=== PATIENT | female | born 1990 | race Native Hawaiian/Other Pacific Islander ===

== ENCOUNTER 2023-08-28 09:28 | Inpatient (IN) | payer OTHER ==
[~2023-08-28] VITALS: Ht 157.5 cm; Wt 84.6 kg
[2023-08-28] VITALS (578 sets, daily range): BP systolic 77–199; BP diastolic 95–127; PULSE 63–97; TEMP 98.3; O2SAT 93–100
[~2023-08-28 09:28] MED LIST: APRESOLINE 25MG25 MG PO; ASPIRIN 81M81 MG/TA2 PO; CATAPRES 0.1MG0.1 MG PO; CEFTIN 250250 MG/TAB PO; COREG 25MG25 MG/TAB PO; NORVASC 10MG10 MG PO; PRINIVIL5 MG PO
[2023-08-28 10:16] LABS: BASO # 0.1 K/mm3 (0.0-0.2); BASO % 0.7 % (0.0-2.0); EOS # 0.8 K/mm3 (0.0-0.7); EOS % 6.6 % (0.0-4.0); GRAN # 7.8 K/mm3 (1.4-6.5); GRAN % 68.2 % (42.2-75.2); HEMATOCRIT 42.4 % (37.0-47.0); HEMOGLOBIN 14.6 g/dl (12.5-16.0); LYMPH % 17.7 % (20.0-51.0); MEAN CELL VOLUME 92 fl (80.0-100.0); MEAN CORPUSCULAR HEMOGLOBIN 32 pg (27-31); MEAN CORPUSCULAR HGB CONC 34 g/dl (33.0-37.0); MEAN PLATELET VOLUME 9.3 fl (7.4-10.4); MONO # 0.7 K/mm3 (0.1-0.6); MONO % 6.5 % (1.7-9.3); PLATELET COUNT 341 K/mm3 (130-400); RED BLOOD COUNT 4.63 M/mm3 (4.10-5.30); REDCELL DISTRIBUTION WIDTH-CV 12.3 % (11.5-14.5)
[2023-08-28 10:29] LABS: INR 0.9 (0.8-3.0); PROTHROMBIN TIME 10.1 SECONDS (9.7-12.8)
[2023-08-28 10:31] LABS: BILIRUBIN,TOTAL 0.4 mg/dL (0.2-1.2); CALCIUM 9.3 mg/dL (8.4-10.2); CREATININE, serum 2.67 mg/dL (0.57-1.11); PARTIAL THROMBOPLASTIN TIME 34.5 SECONDS (26.0-37.0); POTASSIUM 3.1 mmol/L (3.5-4.5); TOTAL PROTEIN 8.6 gm/dL (6.2-8.1)
[2023-08-28 10:37] LABS: TROPONIN-I 0.03 ng/mL (0.00-0.033)
[2023-08-28 11:56] LABS: COLLECTION METHOD CLEAN CATCH
[2023-08-28 12:12] LABS: TRICYCLIC ANTIDEPRESS URINE NEGATIVE
[2023-08-28 12:30] LABS: PH 6.5 (5.0-8.5); URINE APPEARANCE Clear (CLEAR/HAZY); URINE BLOOD 1+ (NEGATIVE); URINE COLOR Straw (YELLOW); URINE GLUCOSE Negative (NEGATIVE); URINE KETONE Negative (NEGATIVE); URINE NITRATE Negative (NEGATIVE); URINE PROTEIN(semi-quant) 3+ (NEGATIVE); URINE RBC 0-2 /hpf (0-2); URINE UROBILINOGEN 0.2 E.U/dL (0.2-1.0)
[2023-08-28 12:31] LABS: SQUAMOUS EPITHELIAL 0-2 /hpf (0-10); URINE BACTERIA None Seen /hpf (NONE SEEN)
--- NOTE | 2023-08-28 13:00 | NUR ---
Report received from VICKY Duron; patient brought over and ambulated over to the bed. Cardene is running through her peripheral line; no other lines or tubes are in place at this time. Patient alert and oriented; no complaints of pain at this time. Patient's vital signs are within normal limits, with the exception of blood pressure which has been elevated. Will continue to titrate Cardene per orders in eMAR.
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
--- NOTE | 2023-08-28 17:44 | NUR ---
REPORT CALLED TO [facility]. PT TRANSPORTED TO ROOM 312 VIA BED ACCOMPANIED BY STAFF. BELONGINGS SENT WITH THE PATIENT. PT WAS STABLE UPON TRANSFER. RESPIRATIONS EVEN AND UNLABORED. NO SIGN OF DISTRESS AT THIS TIME.
--- NOTE | 2023-08-28 17:55 | NUR ---
DR PAULSON NOTIFIED THAT PT HAS A HEADACH. ORDERS FOR TYLENOL AND TO CONTINUE NICARDIPINE DRIP RECEIVED. PT IS HYPERTENSIVE. ORAL MEDICATIONS GIVEN. WILL CONTINUE TO MONITOR. PARTNER AT THE BEDSIDE. PT INSTRUCTED TO CALL THE NURSE FOR ASSISTANCE OR ANY NEEDS.
--- NOTE | 2023-08-28 18:33 | NUR ---
STABLE ON ROUNDS. PT WAS INSTRUCTED TO CONTACT VA TO ESTABLISH CARE AND GET MEDICATIONS. PARTNER REMAINS AT BEDSIDE. PT DENIES PAIN AT THIS TIME. CARDENE DRIP OFF. SBP IS IN THE 140'S AT THIS TIME. RESPIRATIONS EVEN AND UNALBORED. NO SIGN OF DISTRESS AT THIS TIME.
--- NOTE | 2023-08-28 21:34 | NUR ---
PATIENT DOES NOT APPEAR TO BE IN DISTRESS. BLOOD PRESSURE BEING MANAGED WITHOUT NEED FOR CARDENE DRIP. PATIENT SHOWS NO INTEREST IN PARTICIPATING IN CARE. DIFFICULT FOR STAFF TO GET PATIENT TO BE COMPLIANT WITH SIMPLE TASKS SUCH ROLLING OVER FOR AN ASSESSMENT. PATIENT KEEPS HER EYES CLOSED THE WHOLE TIME RN IS IN ROOM. PATIENT HAS NO CONCERNS OR NEEDS AT THIS TIME. BED IN LOW POSITION AND CALL LIGHT WITHIN REACH.
[2023-08-29] VITALS (957 sets, daily range): BP systolic 150–206; BP diastolic 89–137; PULSE 60–82; TEMP 97.8–98.3; O2SAT 84–100
[2023-08-29 04:50] LABS: BASO # 0.1 K/mm3 (0.0-0.2); BASO % 0.6 % (0.0-2.0); EOS # 0.6 K/mm3 (0.0-0.7); EOS % 5.2 % (0.0-4.0); GRAN # 6.9 K/mm3 (1.4-6.5); GRAN % 63.4 % (42.2-75.2); HEMATOCRIT 40.5 % (37.0-47.0); HEMOGLOBIN 14.2 g/dl (12.5-16.0); LYMPH # 2.7 K/mm3 (1.2-3.4); LYMPH % 24.5 % (20.0-51.0); MEAN CELL VOLUME 90 fl (80.0-100.0); MEAN CORPUSCULAR HEMOGLOBIN 32 pg (27-31); MEAN CORPUSCULAR HGB CONC 35 g/dl (33.0-37.0); MEAN PLATELET VOLUME 9.3 fl (7.4-10.4); MONO # 0.6 K/mm3 (0.1-0.6); MONO % 5.9 % (1.7-9.3); PLATELET COUNT 335 K/mm3 (130-400); REDCELL DISTRIBUTION WIDTH-CV 12.5 % (11.5-14.5)
[2023-08-29 05:01] LABS: CREATININE, serum 2.4 mg/dL (0.57-1.11); POTASSIUM 3.5 mmol/L (3.5-4.5)
--- NOTE | 2023-08-29 08:30 | NUR ---
Patient sleeps between disturbances. Awakens easily; A&0 X 4. Cooperative with staff with cares and medication administration. Call light left within reach. Awaiting her breakfast tray.
--- NOTE | 2023-08-29 09:45 | NUR ---
AM Personnel Worker rounds: Personnel Worker visit attempted; RN was with Patient.
--- NOTE | 2023-08-29 17:54 | NUR ---
Patient requesting to get "cleaned up". Provided with toiletries and currenly washing her-self up. No concerns at this time.
--- NOTE | 2023-08-29 20:42 | NUR ---
PATIENT IS IN A PLEASANT MOOD AND IS NOT IN ACUTE DISTRESS. BLOOD PRESSURES REMAINING IN THE 160S SYSTOLICALLY WITH DIASTOLIC BELOW 100. PATIENT DOES NOT HAVE ANY QUESTIONS OR CONCERNS AT THIS TIME BUT STATES SHE IS READY TO GO HOME. BED IN LOW POSITION AND CALL LIGHT WITHIN REACH. PATIENT MUCH MORE WILLING TO COOPERATE THIS EVENING.
--- NOTE | 2023-08-29 20:46 | NUR ---
TYLENOL GIVEN FOR HEADACHE AND ZOFRAN GIVEN FOR NAUSEA PER PATIENT REQUEST.
--- NOTE | 2023-08-29 22:09 | NUR ---
PATIENT BLOOD PRESSURE 206/137 - LABETALOL GIVEN. WILL RESTART CARDENE IF NEEDED.
[2023-08-30] VITALS (1086 sets, daily range): BP systolic 115–208; BP diastolic 63–113; PULSE 61–80; TEMP 98.2–98.5; O2SAT 82–100
[2023-08-30 04:52] LABS: BASO # 0.1 K/mm3 (0.0-0.2); BASO % 0.8 % (0.0-2.0); EOS # 0.6 K/mm3 (0.0-0.7); EOS % 5.2 % (0.0-4.0); GRAN # 7.1 K/mm3 (1.4-6.5); GRAN % 63.6 % (42.2-75.2); HEMATOCRIT 41.3 % (37.0-47.0); HEMOGLOBIN 14.3 g/dl (12.5-16.0); LYMPH # 2.7 K/mm3 (1.2-3.4); LYMPH % 23.7 % (20.0-51.0); MEAN CELL VOLUME 90 fl (80.0-100.0); MEAN CORPUSCULAR HEMOGLOBIN 31 pg (27-31); MEAN CORPUSCULAR HGB CONC 35 g/dl (33.0-37.0); MEAN PLATELET VOLUME 9.6 fl (7.4-10.4); MONO # 0.7 K/mm3 (0.1-0.6); MONO % 6.4 % (1.7-9.3); PLATELET COUNT 333 K/mm3 (130-400); RED BLOOD COUNT 4.59 M/mm3 (4.10-5.30); REDCELL DISTRIBUTION WIDTH-CV 12.4 % (11.5-14.5)
[2023-08-30 05:09] LABS: CALCIUM 9.5 mg/dL (8.4-10.2); CREATININE, serum 2.65 mg/dL (0.57-1.11); POTASSIUM 3.6 mmol/L (3.5-4.5)
--- NOTE | 2023-08-30 05:14 | NUR ---
CARDENE DRIP RESTARTED DUE TO PRESSURES BEING OVER 220s SYTOLICALLY AND 100 DIASTOLIC.
--- NOTE | 2023-08-30 07:17 | NUR ---
BEDSIDE REPORT RECEIVED FROM VICKY BRIZUELA. PT RESTING IN BED. CARDENE DRIP INFUSING TO PERIPHERAL IV IN L AC. PT DENIES NEEDS AT THIS TIME, CALL LIGHT IN REACH.
--- NOTE | 2023-08-30 19:31 | NUR ---
PATIENT IS CRYING BUT IS NOT ABLE TO TELL STAFF WHY. PATIENT NOT IN ACUTE DISTRESS AND BLOOD PRESSURE 114/79. BED IN LOW POSITION AND CALL LIGHT WITHIN REACH. PATIENT IN OBSERVABLE AREA.
[2023-08-31] VITALS (406 sets, daily range): BP systolic 140–150; BP diastolic 82–85; PULSE 70–80; TEMP 98–98.6; O2SAT 91–100
[2023-08-31 04:38] LABS: BASO # 0.1 K/mm3 (0.0-0.2); BASO % 0.8 % (0.0-2.0); EOS # 0.5 K/mm3 (0.0-0.7); EOS % 4.6 % (0.0-4.0); GRAN # 7.1 K/mm3 (1.4-6.5); GRAN % 63.4 % (42.2-75.2); HEMATOCRIT 40.5 % (37.0-47.0); HEMOGLOBIN 14.1 g/dl (12.5-16.0); LYMPH # 2.6 K/mm3 (1.2-3.4); LYMPH % 23.2 % (20.0-51.0); MEAN CELL VOLUME 91 fl (80.0-100.0); MEAN CORPUSCULAR HEMOGLOBIN 32 pg (27-31); MEAN CORPUSCULAR HGB CONC 35 g/dl (33.0-37.0); MEAN PLATELET VOLUME 9.3 fl (7.4-10.4); MONO # 0.9 K/mm3 (0.1-0.6); MONO % 7.6 % (1.7-9.3); PLATELET COUNT 316 K/mm3 (130-400); RED BLOOD COUNT 4.47 M/mm3 (4.10-5.30); REDCELL DISTRIBUTION WIDTH-CV 12.7 % (11.5-14.5)
[2023-08-31 05:00] LABS: CALCIUM 9.3 mg/dL (8.4-10.2); CREATININE, serum 2.71 mg/dL (0.57-1.11); POTASSIUM 3.7 mmol/L (3.5-4.5)
--- NOTE | 2023-08-31 08:00 | NUR ---
PT RESTING IN BED AND REPORTS NO PAIN, BUT REPORTS SHE HAS NOT COMPLETED HER BREAKFAST DUE TO A SMALL AMOUNT OF NAUSEA. NAUSEA MEDS REVIEWED AND ADMINISTERED PER JAN. SHE IS A&OX3, VS WNL, URINE NOTED IN HAT, LAST BM REPORTED TO BE 08/30/23. ALL QUESTIONS ANSWERED AT THIS TIME AND CALL LIGHT IS WITHIN REACH.
--- NOTE | 2023-08-31 09:47 | NUR ---
Initial viist; Patient thanked Explosive Operator Grenade for coming in and offering God's blessings and to keep her in Explosive Operator Grenade's prayers.
[2023-08-31] MEDS ORDERED: APRESOLINE 25MG25 MG PO (09:56)
[2023-08-31] MEDS ORDERED: NORVASC 10MG10 MG PO (09:57)
[2023-08-31] MEDS ORDERED: COREG 25MG25 MG/TAB PO (09:57)
--- NOTE | 2023-08-31 10:53 | NUR ---
Plastic Surgery Technician assisted Patient with trandportation via [employer]. Patient is scheduled to be picked up at [facility] ER enterence with destination of [facility] [place], [place]. Trip cost is $8.60.
--- NOTE | 2023-08-31 10:58 | NUR ---
SENIOR CLINICAL SAS PROGRAMMER learned in rounds that pt is ready for discharge this morning. Pt will need a f/u appointment with her VA Provider to continue to manage her HTN and Nephrology issues. agreed to send pt home with 30 days of medications to cover her until her appointment. SENIOR CLINICAL SAS PROGRAMMER called the [facility] and spoke to Nurse CHARO, Phillip Campbell, ph # [phone]. She reports pt's VA Primary Care Provider is Dr. Wade Sin with the [facility]. Phillip scheduled an appointment for pt on Thursday, Sep 16, 2023 @ 11 am, and she requested that the discharge summary be faxed to her prior to pt's appointment-fax # [phone]. SENIOR CLINICAL SAS PROGRAMMER gave pt her appointment information as well as arranged an uber home. No other concerns noted.
--- NOTE | 2023-08-31 11:45 | NUR ---
DC EDUCATION AND PLANNING VERBALLY REVIEWED AND PRINTOUTS PROVIDED. ALL QUESTIONS ANSWERED. IV SITE REMOVED FROM LAC WITH NO ISSUES- CATHETER REMAINS INTACT AND 2X2 WITH TAPE APPLIED TO THE SITE. PT WALKED TO THE ER ENTRANCE AND AMBULATED INDEPENDENTLY TO THE CAR/ [employer] CALLED BY SW WITH ALL OF HER BELONGINGS.
== END 2023-08-31 11:45 | disposition home or self-care (01) | DRG 305 ==
LOC: COL.ER 09:28 → ICU 11:44
PROVIDERS: Emergency Medicine; ADMIT Internal Medicine
DX: I16.9 Hypertensive crisis, unspecified (principal); N18.9 Chronic kidney disease, unspecified; I12.9 Hypertensive chronic kidney disease with stage 1 through stage 4 chronic kidney disease, or unspecified chronic kidney disease; Z98.51 Tubal ligation status; Z90.49 Acquired absence of other specified parts of digestive tract; Z91.148 Patient's other noncompliance with medication regimen for other reason; Z79.82 Long term (current) use of aspirin
CPT/HCPCS: J1644; J1920; J2405; J7050

== ENCOUNTER 2024-06-21 00:48 | Emergency (ER) | payer OTHER ==
[~2024-06-21] VITALS: Ht 157.5 cm; Wt 90.9 kg
[2024-06-21 00:58] VITALS: TEMP 98.5
[2024-06-21 01:29] LABS: BASO # 0.1 K/mm3 (0.0-0.2); BASO % 0.7 % (0.0-2.0); EOS # 0.6 K/mm3 (0.0-0.7); EOS % 4.5 % (0.0-4.0); GRAN # 8.1 K/mm3 (1.4-6.5); GRAN % 60.1 % (42.2-75.2); HEMATOCRIT 40.8 % (37.0-47.0); HEMOGLOBIN 13.7 g/dl (12.5-16.0); LYMPH # 3.7 K/mm3 (1.2-3.4); LYMPH % 27.8 % (20.0-51.0); MEAN CELL VOLUME 92 fl (80.0-100.0); MEAN CORPUSCULAR HEMOGLOBIN 31 pg (27-31); MEAN CORPUSCULAR HGB CONC 34 g/dl (33.0-37.0); MEAN PLATELET VOLUME 9.6 fl (7.4-10.4); MONO # 0.9 K/mm3 (0.1-0.6); MONO % 6.5 % (1.7-9.3); PLATELET COUNT 348 K/mm3 (130-400); RED BLOOD COUNT 4.45 M/mm3 (4.10-5.30); REDCELL DISTRIBUTION WIDTH-CV 12.5 % (11.5-14.5)
[2024-06-21 01:41] LABS: ALBUMIN 3.8 g/dL (3.5-5.0); BILIRUBIN,TOTAL 0.3 mg/dL (0.2-1.2); CALCIUM 9.4 mg/dL (8.4-10.2); CREATININE, serum 2.99 mg/dL (0.57-1.11); POTASSIUM 3.3 mEq/L (3.5-4.5); TOTAL PROTEIN 8.1 g/dl (6.2-8.1)
[2024-06-21 01:48] LABS: TROPONIN-I 0.041 ng/mL (0.00-0.033)
[2024-06-21] MEDS ORDERED: hydrALAZINE 20 MG/ML 1 ML VIAL IV ONE (02:00)
[2024-06-21] MEDS ORDERED: Morphine 4 MG/ML VIAL IV ONE (02:30)
[2024-06-21] MEDS ORDERED: droPERidol 2.5 MG/ML 2 ML VIAL IV ONE (02:30)
[2024-06-21 02:38] LABS: INR 0.9 (0.8-3.0); PROTHROMBIN TIME 10.3 SECONDS (9.7-12.8)
[2024-06-21 02:41] LABS: PARTIAL THROMBOPLASTIN TIME 34.8 SECONDS (26.0-37.0)
[2024-06-21] MEDS ORDERED: NORVASC 10MG10 MG PO (03:18)
[2024-06-21] MEDS ORDERED: APRESOLINE 25MG25 MG PO ×2 (03:18→03:19)
[2024-06-21] MEDS ORDERED: COREG 25MG25 MG/TAB PO (03:19)
[2024-06-21 03:31] VITALS: BP 193/122; PULSE 89
== END 2024-06-21 03:31 | disposition left against medical advice (07) ==
LOC: COL.ER 00:48
PROVIDERS: Emergency Medicine
DX: I16.1 Hypertensive emergency (principal); I12.9 Hypertensive chronic kidney disease with stage 1 through stage 4 chronic kidney disease, or unspecified chronic kidney disease; N18.4 Chronic kidney disease, stage 4 (severe); R79.1 Abnormal coagulation profile; R79.89 Other specified abnormal findings of blood chemistry; Z79.899 Other long term (current) drug therapy
CPT/HCPCS: J0360; J1790; J1920; J2270

== ENCOUNTER 2024-07-16 23:00 | Inpatient (IN) | payer OTHER ==
[~2024-07-16] VITALS: Ht 157.5 cm; Wt 85.4 kg
[2024-07-16] MEDS ORDERED: Carvedilol 25 MG TAB PO ONE (23:45)
[2024-07-16] MEDS ORDERED: amLODIPine 10 MG TAB PO ONE (23:45)
[2024-07-16] MEDS ORDERED: Losartan 50 MG TAB PO ONE (23:45)
[2024-07-16] MEDS ORDERED: diphenhydrAMINE 50 MG/ML 1 ML VIAL IV ONE (23:45)
[2024-07-17] VITALS (423 sets, daily range): BP systolic 123–166; BP diastolic 72–96; PULSE 56–80; TEMP 98.2–98.7; O2SAT 93–100
[2024-07-17 00:30] LABS: BASO # 0.1 K/mm3 (0.0-0.2); BASO % 0.7 % (0.0-2.0); EOS # 0.3 K/mm3 (0.0-0.7); EOS % 2.2 % (0.0-4.0); GRAN # 10.1 K/mm3 (1.4-6.5); GRAN % 69.5 % (42.2-75.2); HEMATOCRIT 39.6 % (37.0-47.0); HEMOGLOBIN 14.1 g/dl (12.5-16.0); LYMPH # 2.9 K/mm3 (1.2-3.4); LYMPH % 19.5 % (20.0-51.0); MEAN CELL VOLUME 88 fl (80.0-100.0); MEAN CORPUSCULAR HEMOGLOBIN 31 pg (27-31); MEAN CORPUSCULAR HGB CONC 36 g/dl (33.0-37.0); MEAN PLATELET VOLUME 10.5 fl (7.4-10.4); MONO # 1.1 K/mm3 (0.1-0.6); MONO % 7.8 % (1.7-9.3); PLATELET COUNT 261 K/mm3 (130-400)
[2024-07-17 00:32] LABS: INR 1.1 (0.8-3.0); PROTHROMBIN TIME 11.5 SECONDS (9.7-12.8)
[2024-07-17 00:35] LABS: PARTIAL THROMBOPLASTIN TIME 35.1 SECONDS (26.0-37.0)
[2024-07-17 00:41] LABS: ALBUMIN 3.6 g/dL (3.5-5.0); BILIRUBIN,TOTAL 0.6 mg/dL (0.2-1.2); CALCIUM 9.4 mg/dL (8.4-10.2); CREATININE, serum 3.41 mg/dL (0.57-1.11); POTASSIUM 3.1 mEq/L (3.5-4.5)
[2024-07-17 00:58] LABS: TROPONIN-I 0.083 ng/mL (0.00-0.033)
[2024-07-17] MEDS ORDERED: niCARdipine 200 ML IV ONE (01:15)
[2024-07-17] MEDS ORDERED: Acetaminophen 325 MG TAB PO PRN (02:00)
[2024-07-17] MEDS ORDERED: *Potassium Replacement Protocol MC SCH (02:00)
[2024-07-17] MEDS ORDERED: niCARdipine 200 ML IV SCH (02:00)
[2024-07-17] MEDS ORDERED: Potassium Bicarbonate/Citrate 20 MEQ Effervescent TAB PO ONE (02:00)
[2024-07-17 03:27] LABS: COLLECTION METHOD CLEAN CATCH
[2024-07-17 03:41] LABS: MAGNESIUM 2.2 mg/dL (1.6-2.6); PHOSPHOROUS 3.9 mg/dL (2.3-4.7)
[2024-07-17 04:15] LABS: PH 5.5 (5.0-8.5); URINE APPEARANCE CLEAR (CLEAR/HAZY); URINE BLOOD 1+ (NEGATIVE); URINE COLOR YELLOW (YELLOW); URINE GLUCOSE NEGATIVE (NEGATIVE); URINE KETONE NEGATIVE (NEGATIVE); URINE NITRATE NEGATIVE (NEGATIVE); URINE PROTEIN(semi-quant) 3+ (NEGATIVE); URINE UROBILINOGEN 0.2 E.U/dL (0.2-1.0)
[2024-07-17 04:27] LABS: MUCOUS PRESENT (NOT PRESENT); URINE RBC NONE SEEN /hpf (0-2)
[2024-07-17 04:28] LABS: URINE BACTERIA MODERATE /hpf (NONE SEEN)
--- NOTE | 2024-07-17 05:45 | NUR ---
PT'S BLOOD PRESSURE WAS 128/83 UPON ADMISSION TO ICU. CARDENE WAS TURNED OFF. PROVIDER WAS AT THE BEDSIDE AND IS AWARE. PT STATES SHE HAS NOT TAKEN HER BLOOD PRESSURE MEDICATIONS SINCE MAY. PT STATES SHE HAS NOT BEEN ABLE TO GET THRU THE VA. PT HAS MOTIVATION AND COMPLIANCE ISSUES IN RESPECT TO HER HEALTH. BLOOD PRESSURE REMAINS WNL AT 122/72 WITH A HEART RATE OF 59. PT WOULD BENEFIT FROM ASSISTANCE IN GETTING SET UP WITH THE VA. PT STATES SHE DOESN'T HAVE A CAR AND HER BOYFRIEND DOESN'T DRIVE. RESPIRATIONS EVEN AND UNLABORED. NO SIGN OF DISTRESS AT THIS TIME. CONTINUE WITH PLAN OF CARE.
--- NOTE | 2024-07-17 07:00 | NUR ---
Report received from VICKY Maravilla; patient currently resting in bed with eyes closed. Patient has no meds or fluids running through her peripheral line; no other lines or tubes are in place at this time. Patient's blood pressure remains within set parameters this morning without the cardene drip.
[2024-07-17] MEDS ORDERED: Carvedilol 25 MG TAB PO SCH (08:00)
[2024-07-17] MEDS ORDERED: Heparin 5,000 UNITS/ML 1 ML VIAL SQ SCH (08:00)
[2024-07-17] MEDS ORDERED: hydrALAZINE 25 MG TAB PO SCH (08:00)
[2024-07-17] MEDS ORDERED: Pantoprazole 40 MG in NS 10 ML IV SCH (09:00)
[2024-07-17] MEDS ORDERED: amLODIPine 10 MG TAB PO SCH (09:00)
--- NOTE | 2024-07-17 09:20 | NUR ---
workers compensation examiner met with pt to discuss discharge planning. She reports to live with her fani and his family in [place]. She goes to the [facility] for PCP needs and obtains medications from [facility] or the [facility] with difficulties. She is independent with ADLS and uses no DME. She does not have a DPOA-HC and informed SW she is still legally to her now spouse. DAVID advised he would be legal NOK. Pt did not want this. She was agreeable to talking with her sister, Fidelina ([place]) to list her as DPOA-HC. SW provided a copy for her to review at this time. Pt reports her phone is off most times, she is not working, and does not have transportation. She reports not wanting to ask her fani's family for favors; they expect things in return. She usually takes the bus to [facility] and the VA would assist with her getting to their VA via Uber. Pt reports that she is only able to fill 15 days worth of her medications, one refill, then has to follow-up with the VA. She reports difficulties with this as her phone is off and cannot receive the [employer] notifications due to this. SW advised her to try to have this sent to her fipipo's or sister's phone to inform her when it arrives as follow-ups with her provider are important and prevent re-admission for medication non-compliance. Pt verbalized understanding. DAVID provided Good RX card to aid pt and informed her the nonprofit financial controller can meet with her to discuss medicaid eligiblity. DAVID emailed [facility] DAVID Montero of the above barriers for pt. DAVID informed financial advising team of pt needing information. Discharge Plan: home
[2024-07-17] MEDS ORDERED: cefTRIAXone 1 G in Water For Injection,Sterile 10 ML IV SCH (11:30)
[2024-07-17 11:37] LABS: CALCIUM 8.8 mg/dL (8.4-10.2); CREATININE, serum 3.71 mg/dL (0.57-1.11); POTASSIUM 3.2 mEq/L (3.5-4.5)
--- NOTE | 2024-07-17 14:15 | NUR ---
Reported off to VICKY Yepez; patient taken upstairs in wheelchair by this nurse. Patient had no meds or fluids running through her peripheral INT. Patient's vital signs within normal limits and patient stable. Patient taken to room 317; patient's belongings sent up with patient. Met PCT in room.
--- NOTE | 2024-07-17 14:20 | NUR ---
Patient to room 317 by wheelchair from the ICU. Patient A&Ox4. Independent with ambulation. VSS. IV CDI. Denies pain and discomfort. Nurse oriented the patient to location, room and call light. No further needs expressed. Call light within reach
[2024-07-18] VITALS (19 sets, daily range): BP systolic 94–188; BP diastolic 63–119; PULSE 60–99; TEMP 98–98.5
[2024-07-18] MEDS ORDERED: hydrALAZINE 20 MG/ML 1 ML VIAL IV PRN (04:30)
--- NOTE | 2024-07-18 05:25 | NUR ---
Patient complaining of level 8 chest pain. Ordered EKG. BP 183/119. Called OBEY Hazel. New order for Nitro. Given first dose, pain decreased to a 6. Complaining of severe headache and nausea, dry heaving. Given 2nd dose of Nitro, pain to chest decreased to a 4. Yasemin updated, BP 170s/100s. New order for IV Zofran and to give PRN Acetaminophen. Given at this time. Reports pain to chest is much better, rated at a 4. Denies wanting another Nitro at this time. Order for telemetry received, and being put on at this time. Primary care nurse aware of chest pain and cares provided and in room with this nurse at this time.
[2024-07-18] MEDS ORDERED: Ondansetron 4 MG/2 ML VIAL IV PRN (05:30)
--- NOTE | 2024-07-18 05:40 | NUR ---
OBEY Hazel in room. New order for Fentanyl for pain, as well as IV metoprolol 5 mg IV, may give up to 3 times for a BP goal of 160s. Also ordered to give PO Coreg and Norvasc now.
[2024-07-18] MEDS ORDERED: fentaNYL 50 MCG/ML 2 ML VIAL IV PRN (05:45)
[2024-07-18] MEDS ORDERED: Metoprolol Tartrate 5 MG/5 ML VIAL IV SCH (05:45)
--- NOTE | 2024-07-18 06:20 | NUR ---
ASSESSMENT COMPLETE FOR QUILL WINDER. pt HAD A PRETTY QUIET NIGHT UNTIL AROUND 0320HRS, WHEN pt HAD AN ELEVATED B/P OF 173/89, pt OTHER FLEMING ASYMPTOMATIC. HOSPITALIST CALLED. MESSAGE LEFT. HOSPITALIST RECALLED. APRESOLINE ORDERED AND GIVEN. AROUND 20MINS LATER, THE AID REPORTED TO ME THAT pt STATED SHE WAS HAVING CHEST PAINS. AID INSTRUCTED TO GET A SET OF VITALS. B/P WAS ELEVATED. HOSPITALIST CALLED BY CHARGE NURSE. ORDERS GIVEN AND FOLLOWED. AFTER SOME TIME AND TREATMENT, pt's B/P DECREASED FROM A HIGH OF 183/119 TO 154/85. WILL CONTINUE TO MONITOR. CALL LIGHT WITHIN REACH.
[2024-07-18 06:35] LABS: BASO # 0.1 K/mm3 (0.0-0.2); BASO % 0.6 % (0.0-2.0); EOS # 0.5 K/mm3 (0.0-0.7); EOS % 3.8 % (0.0-4.0); GRAN # 8.6 K/mm3 (1.4-6.5); GRAN % 62.6 % (42.2-75.2); HEMATOCRIT 38.7 % (37.0-47.0); HEMOGLOBIN 13.5 g/dl (12.5-16.0); LYMPH # 3.7 K/mm3 (1.2-3.4); LYMPH % 26.6 % (20.0-51.0); MEAN CELL VOLUME 89 fl (80.0-100.0); MEAN CORPUSCULAR HEMOGLOBIN 31 pg (27-31); MEAN CORPUSCULAR HGB CONC 35 g/dl (33.0-37.0); MEAN PLATELET VOLUME 10.3 fl (7.4-10.4); MONO # 0.8 K/mm3 (0.1-0.6); MONO % 6.1 % (1.7-9.3); PLATELET COUNT 258 K/mm3 (130-400); RED BLOOD COUNT 4.37 M/mm3 (4.10-5.30); REDCELL DISTRIBUTION WIDTH-CV 12.1 % (11.5-14.5)
[2024-07-18 06:59] LABS: CALCIUM 9.1 mg/dL (8.4-10.2); CREATININE, serum 3.84 mg/dL (0.57-1.11); MAGNESIUM 2.2 mg/dL (1.6-2.6); POTASSIUM 3.1 mEq/L (3.5-4.5)
--- NOTE | 2024-07-18 07:08 | NUR ---
Patient sleeping in bed, easily awakened with verbal command. A&Ox4. VSS. IV CDI. Denies pain and discomfort. Call light within reach
[2024-07-18] MEDS ORDERED: Potassium Bicarbonate/Citrate 20 MEQ Effervescent TAB PO ONE (07:30)
[2024-07-18] MEDS ORDERED: hydrALAZINE 25 MG TAB PO SCH (08:39)
--- NOTE | 2024-07-18 12:03 | NUR ---
Patient reported chest pain. Dr Cotto notified
[2024-07-19] VITALS (21 sets, daily range): BP systolic 141–208; BP diastolic 68–152; PULSE 65–111; TEMP 97.8–98.7
[2024-07-19 06:55] LABS: BASO # 0.1 K/mm3 (0.0-0.2); BASO % 0.8 % (0.0-2.0); EOS # 0.4 K/mm3 (0.0-0.7); EOS % 4.3 % (0.0-4.0); GRAN # 5.4 K/mm3 (1.4-6.5); GRAN % 58.5 % (42.2-75.2); HEMATOCRIT 37.1 % (37.0-47.0); HEMOGLOBIN 12.5 g/dl (12.5-16.0); LYMPH # 2.5 K/mm3 (1.2-3.4); LYMPH % 26.6 % (20.0-51.0); MEAN CELL VOLUME 92 fl (80.0-100.0); MEAN CORPUSCULAR HEMOGLOBIN 31 pg (27-31); MEAN CORPUSCULAR HGB CONC 34 g/dl (33.0-37.0); MEAN PLATELET VOLUME 10.7 fl (7.4-10.4); MONO # 0.9 K/mm3 (0.1-0.6); MONO % 9.6 % (1.7-9.3); PLATELET COUNT 245 K/mm3 (130-400); RED BLOOD COUNT 4.05 M/mm3 (4.10-5.30); REDCELL DISTRIBUTION WIDTH-CV 12.5 % (11.5-14.5)
[2024-07-19 07:07] LABS: CALCIUM 9.1 mg/dL (8.4-10.2); CREATININE, serum 3.77 mg/dL (0.57-1.11); POTASSIUM 3.6 mEq/L (3.5-4.5)
--- NOTE | 2024-07-19 07:29 | NUR ---
Bedside report received from VICKY Gabriel. Pt awake in bed on telephone with no complaints. Call light within reach.
[2024-07-19] MEDS ORDERED: Regadenoson 0.08 MG/ML 5 ML SYRINGE IV SCH (09:09)
--- NOTE | 2024-07-19 10:35 | NUR ---
Dr. Cotto notified by phone of elevated BPs. No new orders received at this time.
--- NOTE | 2024-07-19 11:10 | NUR ---
SORAIDA Gardner reported to this nurse that pt having complaints of chest pain. Pt assessed and found sitting up in bed crying. Pt states she has chest pain on Lt side of chest and in shoulder area. Pt rates pain /. BP assessed and noted 193/124. Dr. Cotto notified by phone of pt complaints and BP. Dr. Cotto instructed this nurse to administer scheduled 1200 Hydralazine per jan. This nurse asked Dr. Cotto if PRN Nitroglycerin SL tab should be administered and Dr. Cotto stated not at this time.
--- NOTE | 2024-07-19 11:26 | NUR ---
Dr. Cotto instructed this nurse to administer PRN Fentanyl as ordered in jan for pt chest pain rating 10/10.
[2024-07-19] MEDS ORDERED: fentaNYL 50 MCG/ML 2 ML VIAL IV ONE (12:30)
--- NOTE | 2024-07-19 13:17 | NUR ---
Pt reassessed and continues to have complaints of chest pain rating 8/10. Pt had 3 episodes of emesis and noted to be clear and yellow in color. Pt reports to this nurse that she had medium BM with bright red blood drops in stool. Dr. Cotto notified by phone.
--- NOTE | 2024-07-19 20:35 | NUR ---
Patient resting in bed. Rates pain at 10/10 for a headache, prn pain meds given. Denies any other needs. Assessment complete. IV in right hand flushes easliy without complications. Call light and personal items in reach. Bed in low position.
[2024-07-20] VITALS: BP 120/74; PULSE 72; TEMP 98.2
[2024-07-20 01:53] VITALS: BP_SYST 120
[2024-07-20 04:00] VITALS: BP 136/83; PULSE 69; TEMP 98.4
[2024-07-20 04:46] VITALS: BP_SYST 136
--- NOTE | 2024-07-20 06:48 | NUR ---
Patient resting in bed. Denies any pain or needs at this time. No changes over night. Call light and personal items in reach. Bed in low position.
[2024-07-20 07:09] LABS: BASO # 0.1 K/mm3 (0.0-0.2); BASO % 0.7 % (0.0-2.0); EOS # 0.2 K/mm3 (0.0-0.7); EOS % 2.1 % (0.0-4.0); GRAN # 6.2 K/mm3 (1.4-6.5); GRAN % 69.5 % (42.2-75.2); HEMATOCRIT 37.9 % (37.0-47.0); HEMOGLOBIN 12.8 g/dl (12.5-16.0); LYMPH # 1.5 K/mm3 (1.2-3.4); LYMPH % 16.5 % (20.0-51.0); MEAN CELL VOLUME 92 fl (80.0-100.0); MEAN CORPUSCULAR HEMOGLOBIN 31 pg (27-31); MEAN CORPUSCULAR HGB CONC 34 g/dl (33.0-37.0); MEAN PLATELET VOLUME 10.1 fl (7.4-10.4); MONO % 10.7 % (1.7-9.3); PLATELET COUNT 264 K/mm3 (130-400); RED BLOOD COUNT 4.14 M/mm3 (4.10-5.30); REDCELL DISTRIBUTION WIDTH-CV 12.8 % (11.5-14.5)
[2024-07-20 07:29] LABS: CALCIUM 9.2 mg/dL (8.4-10.2); CREATININE, serum 3.94 mg/dL (0.57-1.11); POTASSIUM 3.6 mEq/L (3.5-4.5)
[2024-07-20 07:49] VITALS: BP 130/62; PULSE 66; TEMP 98.2
--- NOTE | 2024-07-20 08:00 | NUR ---
Patient sleeping in bed, easily awakened with verbal command. A&Ox4. VSS. IV CDI. Denies pain and discomfort. Call light within reach
[2024-07-20] MEDS ORDERED: hydrALAZINE 25 MG TAB PO PRN (09:00)
[2024-07-20] MEDS ORDERED: Carvedilol 25 MG TAB PO SCH (09:00)
[2024-07-20] MEDS ORDERED: Sodium Bicarbonate 650 MG TAB PO SCH (09:00)
[2024-07-20 11:49] VITALS: BP 127/74; PULSE 71; TEMP 98.9
[2024-07-20] MEDS ORDERED: SODIUM BICARBO650 MG PO (13:42)
--- NOTE | 2024-07-20 15:02 | NUR ---
Discharge paperwork reviewed with the patient. PAtient verbalized an understanding to follow doctors orders. IV removed, tip intact. Gauze and coban applied. PAtient getting dressed and waiting on a ride home. Call light within reach
--- NOTE | 2024-07-20 15:30 | NUR ---
PAtient taken by wheelchair to awaiting vehicle with personal belongings and discharge paperwork
== END 2024-07-20 15:30 | disposition home or self-care (01) | DRG 281 ==
LOC: COL.ER 23:00 → MEDICAL 07-17 01:22 → ICU 07-17 01:22 → MEDICAL 07-17 02:00
PROVIDERS: Emergency Medicine; Nurse Practitioner Family; ADMIT Internal Medicine
DX: I16.1 Hypertensive emergency (principal); E87.20 Acidosis, unspecified; I21.A1 Myocardial infarction type 2; N17.9 Acute kidney failure, unspecified; N39.0 Urinary tract infection, site not specified; N18.5 Chronic kidney disease, stage 5; I45.81 Long QT syndrome; E87.6 Hypokalemia; B96.20 Unspecified Escherichia coli [E. coli] as the cause of diseases classified elsewhere; D72.829 Elevated white blood cell count, unspecified; I12.0 Hypertensive chronic kidney disease with stage 5 chronic kidney disease or end stage renal disease; Z91.148 Patient's other noncompliance with medication regimen for other reason; Z79.899 Other long term (current) drug therapy; Z79.82 Long term (current) use of aspirin; Z87.891 Personal history of nicotine dependence; Z23 Encounter for immunization
CPT/HCPCS: A9500-JZ; J0360; J0696; J1200; J1644; J2404; J2405; J2470; J2765; J2785; J3010; Q3014